=== PATIENT | male | born 1960 | race Caucasian/White ===

== ENCOUNTER 2021-11-18 18:13 | Inpatient (IN) | payer OTHER ==
[~2021-11-18] VITALS: Ht 165.1 cm; Wt 68.9 kg
--- NOTE | 2021-11-18 18:18 | NUR ---
TO ER BED 2. BIB ROOMATE C/O L SIDED WEAKNESS AND L SIDED FACIAL DROOP SINCE THIS AM. PT CONNECTED TO MONITOR. NOT IN RESPIRATORY DISTRESS. PREPARED TO BE TAKEN TO CT
--- NOTE | 2021-11-18 18:20 | NUR ---
CALLED CODE STROKE
--- NOTE | 2021-11-18 18:23 | NUR ---
TELE NEURO REQUEST SENT
[2021-11-18] MEDS ORDERED: IOHEXOL-350 100 ML VIAL IV ONE (18:26)
[2021-11-18] MEDS ORDERED: IV NS 0.9% 250 ML IV ONE (18:27)
--- NOTE | 2021-11-18 18:30 | NUR ---
PT TAKEN FOR CT SCAN
--- NOTE | 2021-11-18 18:32 | NUR ---
AWAITING CALL BACK FROM DR GAONA NEUROLOGIST
--- NOTE | 2021-11-18 18:40 | NUR ---
PATIENT BACK TO ROOM FROM CT SCAN AND XRAY
[2021-11-18] MEDS ORDERED: ARIP15TA3 PO (18:42)
--- NOTE | 2021-11-18 18:56 | NUR ---
LAB AT BEDSIDE
[2021-11-18] MEDS ORDERED: TAMS-12 PO (19:00)
[2021-11-18] MEDS ORDERED: ATOR80TA PO (19:00)
[2021-11-18] MEDS ORDERED: NIFE30TA7 PO (19:00)
[2021-11-18] MEDS ORDERED: SERT50TA12 PO (19:00)
[2021-11-18] MEDS ORDERED: LEVE750T4 PO (19:00)
--- NOTE | 2021-11-18 19:02 | NUR ---
COVID ANTIGEN SWAB DONE AND SENT TO LAB
[2021-11-18] MEDS ORDERED: INSU100I34 SQ (19:03)
[2021-11-18] MEDS ORDERED: CLOP75TA15 PO (19:03)
--- NOTE | 2021-11-18 19:05 | NUR ---
REC'DD REPORT FROM MARIA DOLORES HORTON FOR [facility]
[2021-11-18 19:30] LABS: CALCIUM, SERUM 8.5 mg/dL (8.5-10.1); CARBON DIOXIDE 25 mmol/L (21-32); CHLORIDE 109 mmol/L (98-107); CREATININE 1.8 mg/dL (0.6-1.3); GLUCOSE 110 mg/dL (74-106); POTASSIUM 3.9 mmol/L (3.5-5.1); SODIUM SERUM 142 mmol/L (136-145); UREA NITROGEN, BLOOD 24 mg/dL (7-18)
[2021-11-18 19:53] LABS: BASOPHILS % (AUTO) 0.2 % (0.0-2.0); EOSINOPHILS % (AUTO) 2.2 % (0.0-6.0); HEMATOCRIT 40 % (39-51); LYMPHOCYTES # (AUTO) 1.2 K/uL (0.8-4.8); MEAN CORPUSCULAR HGB CONC 32 g/dl (31.0-36.0); MEAN CORPUSCULAR VOLUME 82 fL (80-96); MONOCYTES # (AUTO) 0.5 K/uL (0.1-1.30); MONOCYTES % (AUTO) 7.5 % (2.0-12.0); NEUTROPHILS # (AUTO) 5.2 K/uL (1.8-8.9); NEUTROPHILS % (AUTO) 73.1 % (43.0-81.0); PLATELET COUNT (AUTO) 333 K/uL (150-450); RED BLOOD CELL COUNT(AUTO) 4.92 MIL/uL (4.5-6.0); WHITE BLOOD COUNT (AUTO) 7.1 K/uL (4.3-11.0)
--- NOTE | 2021-11-18 20:26 | NUR ---
PT WILL BE GOING TO BED 103 PER RN WELDING MACHINE OPERATOR ARC.
--- NOTE | 2021-11-18 20:59 | NUR ---
PER FINE ARTIST, KEH NO BP MEDS
--- NOTE | 2021-11-18 21:06 | NUR ---
ATTEMPTED TO GIVE REPORT, RN TRANSPORTING A PT
[2021-11-18] MEDS ORDERED: LABETALOL HCL IV 100MG VIAL IV PRN (21:30)
--- NOTE | 2021-11-18 21:35 | NUR ---
GAVE REPORT TO MARIA DOLORES Bermudez FOR [facility]
--- NOTE | 2021-11-18 21:40 | NUR ---
RN NOTES ADMITTED A
--- NOTE | 2021-11-18 21:40 | NUR ---
RN NOTES ADMITTED A 60 Y/O MALE PATIENT FROM ER VIA RNEY A/O X 3-4 WITH R SIDED DEFICIT. WITH IV ACCESS AT R AC #18 AND L HAND # 18 PATENT FLUSHES WELL. VITAL SIGNS TAKEN AND RECORDED AFEBRILE. SAFELY TRANSFER PATIENT TO BED. BODY ASSESSMENT DONE. BELONGINGS CHECKED AND RECORDED. ALL SAFETY MEASURES IN PLACE AT ALL TIMES. HOB ELEVATED CALL LIGHT WITHIN REACH. WILL MONITOR THE PATIENT
[2021-11-18] MEDS ORDERED: SIMVASTATIN 20 MG TABLET PO SCH (22:00)
[2021-11-18] MEDS ORDERED: BLOOD SUGAR DIAGNOSTIC 1 EACH STRIP IN SCH (22:00)
[2021-11-18 22:20] VITALS: BP 187/79
[2021-11-18] MEDS: ATORVASTATIN 40 MG TABLET PO SCH (22:23)
[2021-11-18] MEDS: NIFEdipine XL (30MG) 30 MG TAB PO SCH (22:24)
--- NOTE | 2021-11-18 22:30 | NUR ---
RN NOTES BS 138 MG/DL DUE REGULAR INSULIN PER SLIDING SCALE 3 UNITS GIVEN. ALL DUE MEDS GIVEN ORDERED. PATIENT TOLERATED NO COUGHING NOTED.
[2021-11-18] MEDS ORDERED: DEXTROSE 50%-WATER 50 ML DISP.SYRIN IV PRN (23:30)
[2021-11-19] MEDS ORDERED: BLOOD SUGAR DIAGNOSTIC 1 EACH STRIP IN SCH
[2021-11-19] MEDS: *INSULIN REGULAR(HUMULIN R)HUM 100 UNIT/ML VIAL SQ PRN ×2 (00:34→22:13)
[2021-11-19 04:00] VITALS: BP 167/78
--- NOTE | 2021-11-19 05:43 | NUR ---
TEXT DR. CROCKETT FOR MRI APPROVAL.
--- NOTE | 2021-11-19 05:59 | NUR ---
MRI APPROVE, CHARTERED ACCOUNTANT (JOSE) NOTIFIED VIA TEXT.
[2021-11-19 06:18] LABS: BASOPHILS % (AUTO) 0.2 % (0.0-2.0); EOSINOPHILS % (AUTO) 1.5 % (0.0-6.0); HEMATOCRIT 43 % (39-51); HEMOGLOBIN 13.9 g/dL (13.5-17.5); LYMPHOCYTES # (AUTO) 1.2 K/uL (0.8-4.8); LYMPHOCYTES % (AUTO) 16.8 % (20.0-44.0); MEAN CORPUSCULAR HGB CONC 33 g/dl (31.0-36.0); MEAN CORPUSCULAR VOLUME 81 fL (80-96); MONOCYTES # (AUTO) 0.5 K/uL (0.1-1.30); MONOCYTES % (AUTO) 6.8 % (2.0-12.0); NEUTROPHILS # (AUTO) 5.3 K/uL (1.8-8.9); NEUTROPHILS % (AUTO) 74.7 % (43.0-81.0); PLATELET COUNT (AUTO) 319 K/uL (150-450); RED BLOOD CELL COUNT(AUTO) 5.25 MIL/uL (4.5-6.0)
--- NOTE | 2021-11-19 06:43 | NUR ---
RN NOTES PATIENT REMAINS IN STABLE CONDITION NO SIGNIFICANT CHANGES IN HEALTH CONDITION. ALL DUE MEDS GIVEN ORDERED. KEPT CLEAN AND DRY AT ALL TIMES. ON ROOM AIR SATING 98% NO DESATURATION NO PAIN NOTED AT THIS TIME. ALL SAFETY MEASURES IN PLACE. HOB ELEVATED. CALL LIGHT WITHIN REACH. BED ON LOWEST POSITION AND LOCKED. WILL ENDORSED TO MORNING RN FOR [facility]
[2021-11-19 06:45] LABS: CHOLESTEROL 115 mg/dL (<200); HDL CHOLESTEROL 52 mg/dL (40-60); LDL 54 mg/dL (0-99); TRIGLYCERIDES 76 mg/dL (30-150)
--- NOTE | 2021-11-19 07:11 | NUR ---
RN OPENING NOTES RECEIVED PT IN BED SLEEPING, PT ON RA SATING AT 98%. IV ACCESS AT RAC 18G AND L HAND 18G. NO S/S OF DISTRESS OR C/O PAIN AT THIS TIME. ALL SAFETY MEASURES IN PLACE, BED IN LOWEST LOCKED POSITION, SR UP X 3, CALL LIGHT WITHIN REACH. WILL CONTINUE TO MONITOR THROUGHOUT SHIFT.
[2021-11-19] MEDS: BLOOD SUGAR DIAGNOSTIC 1 EACH STRIP VI SCH ×4 (07:37→22:13)
[2021-11-19 08:39] LABS: ALANINE AMINOTRANSFERASE 20 U/L (12-78); ALBUMIN 2.7 g/dL (3.4-5.0); BILIRUBIN,TOTAL 0.2 mg/dL (0.2-1.0); CHLORIDE 107 mmol/L (98-107); CREATININE 1.9 mg/dL (0.6-1.3)
[2021-11-19] MEDS ORDERED: Medication Not On Formulary EA (Atorvastatin Calcium (Lipitor) 80 MG) PO SCH (09:00)
[2021-11-19] MEDS ORDERED: Medication Not On Formulary EA (Levetiracetam (Keppra) 750 MG) PO SCH (09:00)
[2021-11-19] MEDS ORDERED: ASPIRIN 81 MG TAB.CHEW PO SCH (09:00)
[2021-11-19] MEDS: NICOTINE PATCH (14MG) 14 MG PATCH.TD24 TD SCH (09:08)
[2021-11-19] MEDS: NIFEdipine XL (30MG) 30 MG TAB PO SCH (09:08)
[2021-11-19] MEDS: CLOPIDOGREL BISULFATE 75 MG TABLET PO SCH (09:09)
[2021-11-19] MEDS: SERTRALINE HCL 50 MG TABLET PO SCH (09:09)
[2021-11-19] MEDS: LEVETIRACETAM (250 MG) 250 MG TABLET PO SCH ×2 (09:09→17:31)
[2021-11-19] MEDS: TAMSULOSIN 0.4 MG CAP.SR.24H PO SCH (09:09)
--- NOTE | 2021-11-19 12:41 | NUR ---
RN NOTES DOCTOR SYMONE NOTIFIED ABOUT PT BP OF 190/90. WILL CONTINUE TO DO MANUAL BP MEASUREMENTS AND GIVE MEDS ORDERED.
[2021-11-19 12:46] LABS: SODIUM SERUM 143 mmol/L (136-145)
[2021-11-19 12:47] LABS: ALKALINE PHOSPHATASE 124 U/L (46-116); ASPARTATE AMINOTRANSFERASE 16 U/L (15-37); CALCIUM, SERUM 9.1 mg/dL (8.5-10.1); CARBON DIOXIDE 19 mmol/L (21-32); GLUCOSE 137 mg/dL (74-106); POTASSIUM 4.2 mmol/L (3.5-5.1); TOTAL PROTEIN, SERUM 7.3 g/dL (6.4-8.2); UREA NITROGEN, BLOOD 23 mg/dL (7-18)
[2021-11-19] MEDS: hydrALAZINE HCL IV 20 MG VIAL IV PRN ×2 (13:58→16:24)
[2021-11-19 16:00] VITALS: BP 187/91
[2021-11-19] MEDS: INSULIN REGULAR, HUMAN 100 UNIT/ML 3 ML VIAL SQ PRN (18:29)
--- NOTE | 2021-11-19 18:58 | NUR ---
RN CLOSING NOTES PT IS RESTING IN BED, PT COMPLAINS OF SLIGHT NAUSEA. PT ON ROOM AIR SATING AT 98%. PT IS A/O X3-4. IV ACCESS AT R AC 18G AND L HAND 18G. ALL SAFETY MEASURES IMPLEMENTED, BED IN LOWEST POSITION, LOCKED, SIDE RAILS UP X 3, CALL LIGHT WITHIN REACH. ALL NEEDS AND ORDERS ADDRESSED DURING THE SHIFT.
[2021-11-19 20:00] VITALS: BP 124/66
[2021-11-19] MEDS: ATORVASTATIN 40 MG TABLET PO SCH (21:23)
[2021-11-20] VITALS: BP 127/70
[2021-11-20 04:00] VITALS: BP 165/65
--- NOTE | 2021-11-20 05:32 | NUR ---
SAND CARRIER (abran) NOTIFIED VIA TEXT.
[2021-11-20] MEDS: hydrALAZINE HCL IV 20 MG VIAL IV PRN ×2 (06:13→16:18)
--- NOTE | 2021-11-20 06:49 | NUR ---
RN notes Alert with confusion, verbally able to communicate needs. Non ambulatory. In no apparent distress, breathing even and unlabored. No complaint of pain or discomfort. Noted with elevated SBP 165. Hydralazine 10mg administered at around 06:00, no adverse effect noted. Kept clean and dry. Will endorse to next shift for continuity of care.
--- NOTE | 2021-11-20 07:30 | NUR ---
RN NOTES PATIENT RESTING IN BED AT THIS TIME, EYES CLOSED, ABLE TO BE AWAKENED. FILIPINO-SPEAKING. BREATHING EVEN AND UNLABORED, NO DISTRESS. SR ON TELE MONITOR. IV LINE INTACT AND PATENT. SAFETY MEASURES IN PLACE. WILL CONTINUE TO MONITOR.
[2021-11-20] MEDS: INSULIN REGULAR, HUMAN 100 UNIT/ML 3 ML VIAL SQ PRN ×3 (07:35→16:45)
[2021-11-20] MEDS: BLOOD SUGAR DIAGNOSTIC 1 EACH STRIP VI SCH ×4 (07:35→21:43)
[2021-11-20 07:36] LABS: CALCIUM, SERUM 8.5 mg/dL (8.5-10.1); CREATININE 2.3 mg/dL (0.6-1.3); MAGNESIUM 2.1 mg/dL (1.8-2.4); PHOSPHORUS 4.4 mg/dL (2.5-4.9); POTASSIUM 3.8 mmol/L (3.5-5.1)
[2021-11-20 08:00] VITALS: BP 157/72
--- NOTE | 2021-11-20 08:35 | NUR ---
RN NOTES SPOKE W/ ALIA FROM RADIOLOGY; WILL DO MRI LATER TODAY FOR PATIENT PER ALIA.
[2021-11-20] MEDS: CLOPIDOGREL BISULFATE 75 MG TABLET PO SCH (09:17)
[2021-11-20] MEDS: NIFEdipine XL (30MG) 30 MG TAB PO SCH (09:17)
[2021-11-20] MEDS: SERTRALINE HCL 50 MG TABLET PO SCH (09:17)
[2021-11-20] MEDS: LEVETIRACETAM (250 MG) 250 MG TABLET PO SCH ×2 (09:17→16:17)
[2021-11-20] MEDS: NICOTINE PATCH (14MG) 14 MG PATCH.TD24 TD SCH (09:17)
[2021-11-20] MEDS: TAMSULOSIN 0.4 MG CAP.SR.24H PO SCH (09:17)
--- NOTE | 2021-11-20 10:10 | NUR ---
RN NOTES SPEECH THERAPIST AT BEDSIDE FOR [facility] AND [facility].
[2021-11-20 12:00] VITALS: BP 152/69
--- NOTE | 2021-11-20 12:37 | NUR ---
RN NOTES PATIENT PICKED UP FOR MRI PROCEDURE VIA GURNEY, ACCOMPANIED BY 2 RAD TECHS.
--- NOTE | 2021-11-20 13:45 | NUR ---
RN NOTES PATIENT RETURNED FROM MRI PROCEDURE VIA GURNEY, ACCOMPANIED BY RAD TRANSPORTER. PATIENT REATTACHED TO TELE MONITOR.
[2021-11-20] MEDS ORDERED: GADOTERATE MEGLUMINE 5 MMOL/10 ML VIAL IV ONE (14:03)
[2021-11-20 16:00] VITALS: BP 165/83
--- NOTE | 2021-11-20 16:39 | NUR ---
CAR BLOCKER NOTE CALLED TO DR MILLARD NEUROLOGIST ABOUT MRI BRAIN RESULT, NO NEW ORDER GIVEN AT THIS TIME
--- NOTE | 2021-11-20 18:50 | NUR ---
RN NOTES NEURO CHECKS DONE DURING THE SHIFT; NO NEW DEFICIT NOTED. A/O X2-3, ABLE TO MAKE NEEDS KNOWN. ASPIRATION AND SEIZURE PRECS OBSERVED. ABLE TO TAKE MEDS. ASSISTED W/ REPOSITIONING TOLERATED. SAFETY MEASURES MAINTAINED. WILL ENDORSE TO TRAVELING FREIGHT AGENT RN FOR [facility].
--- NOTE | 2021-11-20 19:30 | NUR ---
RN OPENING NOTES RECEIVED PATIENT RESTING IN BED, AWAKE AND A/O X 3 JAPANESE SPEAKING. BREATHING EVEN AND UNLABORED, NO DISTRESS. SR ON TELE MONITOR. IV LINE INTACT AND PATENT RUNNING NS 0.9 70 ML/HR . ALL ISOLATION AND SAFETY PRECAUTIONS TAKEN AT THIS TIME. ON ROOM AIR. WILL CONTINUE TO MONITOR PATIENT AND DO NEURO CHECKS ORDERED.
[2021-11-20 20:00] VITALS: BP 159/71
[2021-11-20] MEDS: ATORVASTATIN 40 MG TABLET PO SCH (21:29)
[2021-11-21] VITALS (7 sets, daily range): BP systolic 127–189; BP diastolic 67–94
--- NOTE | 2021-11-21 04:20 | NUR ---
RN NOTE CONTACTED ALEXIS HURST, FOR PATIENTS HR OF BEING INT E LOW 40'S AND 50'S .SHE GAVE ORDERS TO CONTINUE TO MONITOR HR FOR NOW. ALSO MENTIONED HOW THE BP IS 162/70. SHE SAID TO NOT GIVE THE HYDRALAZINE, THE PARAMETERS TO MAINTAIN THE BP FROM 140-160. WILL HOLD THE HYDRAZINE FOR NOW AND CONTINUE TO MONITOR THE HR ORDERED.
--- NOTE | 2021-11-21 04:40 | NUR ---
RN NOTE ALEXIS HOG WORKER CAME TO UNIT, SPOKE WITH HER REGARDING THE PATIENTS BLOOD PRESSURE. SHE SAID THAT DR. MILLARD STATED IN NOTES TO MAINTAIN PERMISSIVE BP CONTRO ( USUALLY BETWEEN 160-180)L, AND ASKED ME TO ENDORSE TO THE AM NURSE TO CLEAR THE PARAMETERS FOR THE PERMISSIVE BP PARAMETER CONTROL.
--- NOTE | 2021-11-21 06:21 | NUR ---
RN CLOSING NOTES PATIENT HR IS NOW 59, ALL MEDS AND FLUIDS GIVEN ORDERED. PATIENT KEPT DRY AND CLEAN THROUGHOUT THE NIGHT. ALL SAFETY, ENVIRONMENTAL, AND ISOLATION PRECAUTIONS TAKEN. BED IN LOW POSITION, ALL NEURO CHECKS COMPLETED, WILL ENDORSE PLAN OF CARE FOR AM NURSE.
[2021-11-21 07:29] LABS: BASOPHILS % (AUTO) 0.2 % (0.0-2.0); EOSINOPHILS % (AUTO) 2.6 % (0.0-6.0); HEMATOCRIT 37 % (39-51); HEMOGLOBIN 12.4 g/dL (13.5-17.5); LYMPHOCYTES # (AUTO) 1.3 K/uL (0.8-4.8); LYMPHOCYTES % (AUTO) 20.6 % (20.0-44.0); MEAN CORPUSCULAR HGB CONC 33 g/dl (31.0-36.0); MEAN CORPUSCULAR VOLUME 80 fL (80-96); MONOCYTES # (AUTO) 0.5 K/uL (0.1-1.30); MONOCYTES % (AUTO) 7.9 % (2.0-12.0); NEUTROPHILS # (AUTO) 4.2 K/uL (1.8-8.9); NEUTROPHILS % (AUTO) 68.7 % (43.0-81.0); PLATELET COUNT (AUTO) 354 K/uL (150-450); RED BLOOD CELL COUNT(AUTO) 4.64 MIL/uL (4.5-6.0); WHITE BLOOD COUNT (AUTO) 6.1 K/uL (4.3-11.0)
--- NOTE | 2021-11-21 07:37 | NUR ---
RN OPENING NOTE RECEIVED PATIENT RESTING IN BED. PATIENT IS A/O X 3 WALLISIAN SPEAKING. BREATHING EVEN AND UNLABORED, NO DISTRESS. SINUS DIANA ON TELE MONITOR. IV LINE INTACT AND PATENT RUNNING NS 0.9 70 ML/HR . ALL ISOLATION AND SAFETY PRECAUTIONS TAKEN AT THIS TIME. ON ROOM AIR. WILL CONTINUE TO MONITOR PATIENT AND DO NEURO CHECKS ORDERED.
[2021-11-21] MEDS: BLOOD SUGAR DIAGNOSTIC 1 EACH STRIP VI SCH ×4 (08:10→21:40)
[2021-11-21] MEDS: LEVETIRACETAM (250 MG) 250 MG TABLET PO SCH ×2 (08:11→17:13)
[2021-11-21] MEDS: TAMSULOSIN 0.4 MG CAP.SR.24H PO SCH (08:11)
[2021-11-21] MEDS: SERTRALINE HCL 50 MG TABLET PO SCH (08:11)
[2021-11-21] MEDS: CLOPIDOGREL BISULFATE 75 MG TABLET PO SCH (08:13)
[2021-11-21] MEDS: NICOTINE PATCH (14MG) 14 MG PATCH.TD24 TD SCH (08:13)
--- NOTE | 2021-11-21 08:15 | NUR ---
RN NOTE PATIENT BP 178/86 AND HR 48. SPOKE WITH DR ASHBY ABOUT GIVING NIFEDIPINE WITH AM MEDS TO MAINTAIN BP OF 160-180 SYSTOLIC PER MD ORDERS. OK TO GIVE NIFEDIPINE PER DR ASHBY.
[2021-11-21] MEDS: NIFEdipine XL (30MG) 30 MG TAB PO SCH (08:29)
[2021-11-21 08:48] LABS: CALCIUM, SERUM 10.1 mg/dL (8.5-10.1); CREATININE 2.2 mg/dL (0.6-1.3); PHOSPHORUS 3.7 mg/dL (2.5-4.9); POTASSIUM 4.1 mmol/L (3.5-5.1)
[2021-11-21 09:06] LABS: MAGNESIUM 2.2 mg/dL (1.8-2.4)
[2021-11-21] MEDS: IV NS 0.9% 1,000 ML IV PRN ×2 (09:48→23:16)
[2021-11-21] MEDS: hydrALAZINE HCL IV 20 MG VIAL IV PRN ×2 (11:40→23:33)
[2021-11-21] MEDS ORDERED: HEPARIN SODIUM, PORCINE 5000 UNITS/1 ML VIAL SQ SCH (15:00)
[2021-11-21] MEDS: APIXABAN 2.5 MG TABLET PO SCH (17:16)
--- NOTE | 2021-11-21 18:32 | NUR ---
RN CLOSING NOTE PATIENT IN BED RESTING WITH NO SIGN OF DISTRESS. PATIENT IS A/O X 3. NEURO CHECKS ADMINISTERED ORDERED. SOMALI SPEAKING. BREATHING EVEN AND UNLABORED, NO DISTRESS. O2SAT OF 98% ON ROOM AIR. SINUS DIANA ON TELE MONITOR. L HAND PIV LINE INTACT AND PATENT RUNNING NS 0.9 70 ML/HR. ALL ISOLATION AND SAFETY PRECAUTIONS TAKEN AT THIS TIME. CALL LIGHT WITHIN REACH. BED IN LOWEST POSITION AND LOCKED IN PLACE. WILL ENDORSE TO FOOD SERVICE DRIVER RN.
--- NOTE | 2021-11-21 19:20 | NUR ---
RN opening notes Received Pt from morning nurse. Pt is laying in bed comfortably watching TV. Pt is alert and orientedX2-3. On room air. no SOB. No S/S of distress noted. Tele monitor showed SR hr at 60. IV site at L hand# 20 is clean, intact and infuising well NS @ 70 ml/hr. Safety precautions is maintained. Contact precautions is maintained. Will continue to monitor.
[2021-11-21] MEDS: ATORVASTATIN 40 MG TABLET PO SCH (21:16)
[2021-11-21] MEDS: *INSULIN REGULAR(HUMULIN R)HUM 100 UNIT/ML VIAL SQ PRN (21:40)
--- NOTE | 2021-11-21 21:40 | NUR ---
RN notes Pt's blood sugar HS is 101. Held insulin per level ordered. No S/S of hypoglycemia noted.
--- NOTE | 2021-11-21 23:34 | NUR ---
RN notes Pt's BP 164/84 and HR 54. administered hydralazine 0.5 ml/iv push/prn for high BP as ordered. Will continue to monitor.
[2021-11-22 04:00] VITALS: BP 167/87
[2021-11-22] MEDS: hydrALAZINE HCL IV 20 MG VIAL IV PRN ×3 (04:32→17:28)
--- NOTE | 2021-11-22 06:28 | NUR ---
RN closing notes Pt is resting in bed comfortably. Pt is alert and orientedX2-3. On room air. no SOB. No S/S of distress noted. Tele monitor showed SR hr at 64. IV site at L hand# 20 is clean, intact and infuising well NS @ 70 ml/hr. Routine meds were given as ordered. Kept Pt clean, dry and comfortable. Safety precautions is maintained. Contact precautions is maintained. Will endorse to am nurse for [facility].
[2021-11-22 06:38] LABS: BASOPHILS % (AUTO) 0.2 % (0.0-2.0); EOSINOPHILS % (AUTO) 0.7 % (0.0-6.0); HEMATOCRIT 43 % (39-51); LYMPHOCYTES # (AUTO) 0.8 K/uL (0.8-4.8); LYMPHOCYTES % (AUTO) 10.3 % (20.0-44.0); MEAN CORPUSCULAR HGB CONC 33 g/dl (31.0-36.0); MEAN CORPUSCULAR VOLUME 80 fL (80-96); MONOCYTES # (AUTO) 0.3 K/uL (0.1-1.30); MONOCYTES % (AUTO) 4.1 % (2.0-12.0); NEUTROPHILS # (AUTO) 6.3 K/uL (1.8-8.9); NEUTROPHILS % (AUTO) 84.7 % (43.0-81.0); PLATELET COUNT (AUTO) 396 K/uL (150-450); RED BLOOD CELL COUNT(AUTO) 5.31 MIL/uL (4.5-6.0); WHITE BLOOD COUNT (AUTO) 7.5 K/uL (4.3-11.0)
[2021-11-22 08:00] VITALS: BP 189/75
[2021-11-22] MEDS: NICOTINE PATCH (14MG) 14 MG PATCH.TD24 TD SCH (08:23)
[2021-11-22] MEDS: BLOOD SUGAR DIAGNOSTIC 1 EACH STRIP VI SCH ×4 (08:23→22:43)
[2021-11-22] MEDS: LEVETIRACETAM (250 MG) 250 MG TABLET PO SCH ×2 (08:24→17:25)
[2021-11-22] MEDS: SERTRALINE HCL 50 MG TABLET PO SCH (08:24)
[2021-11-22] MEDS: NIFEdipine XL (30MG) 30 MG TAB PO SCH (08:24)
[2021-11-22] MEDS: TAMSULOSIN 0.4 MG CAP.SR.24H PO SCH (08:24)
[2021-11-22] MEDS: APIXABAN 2.5 MG TABLET PO SCH ×2 (08:25→17:26)
[2021-11-22] MEDS ORDERED: AMLODIPINE BESYLATE 5 MG TABLET PO SCH (09:00)
[2021-11-22] MEDS: AMLODIPINE BESYLATE 5 MG TABLET PO SCH (09:00)
[2021-11-22] MEDS: PRAZOSIN HCL 1 MG CAPSULE PO SCH ×3 (09:28→17:25)
[2021-11-22 11:23] LABS: CALCIUM, SERUM 8.7 mg/dL (8.5-10.1); CREATININE 1.9 mg/dL (0.6-1.3); PHOSPHORUS 2.9 mg/dL (2.5-4.9); POTASSIUM 3.8 mmol/L (3.5-5.1)
[2021-11-22 12:00] VITALS: BP 189/86
[2021-11-22] MEDS: INSULIN REGULAR, HUMAN 100 UNIT/ML 3 ML VIAL SQ PRN (12:30)
[2021-11-22 16:00] VITALS: BP 170/63
--- NOTE | 2021-11-22 19:20 | NUR ---
RN OPENING NOTES RECEIVED PATIENT ON BED , ALERT ORIENTED X 2-3, RESPIRATORY EVEN AND UNLABORED NO SOB NOTED. REMAIN AFEBRILE, ON ROOM AIR SATING AT 98%. NOTED WITH LEFT HAND #20 IV LINE INTACT, PATENT, FLUSHED WITH NS, NO INFILTRATION NOTED AT SITE. IVF RUNNING WITH NS 1L @ 70ML/HR. ALL SAFETY MEASURE PROVIDED. BED IN LOWEST POSITION, LOCKED. CONTINUE TO MONITOR.
[2021-11-22 20:00] VITALS: BP 139/60
[2021-11-22] MEDS: ATORVASTATIN 40 MG TABLET PO SCH (22:43)
[2021-11-22] MEDS: *INSULIN REGULAR(HUMULIN R)HUM 100 UNIT/ML VIAL SQ PRN (22:44)
[2021-11-23 04:00] VITALS: BP 158/70
--- NOTE | 2021-11-23 07:20 | NUR ---
RN CLOSING NOTES NO SIGNIFICANT CHANGES THROUGH OUT THE SHIFT, RESPIRATORY EVEN AND UNLABORED NO SOB NOTED. REMAIN AFEBRILE, ON ROOM AIR SATING AT 98%. STILL RUNNING WITH NS 1L @ 70ML/HR. ALL DUE MEDS GIVEN ORDERED. ALL SAFETY MEASURE PROVIDED. BED IN LOWEST POSITION, LOCKED. CONTINUE TO MONITOR.
--- NOTE | 2021-11-23 07:43 | NUR ---
RN OPENING NOTE Patient in bed, asleep. A/O x 2-3. On room air, breathing evenly and unlabored. No SOB or s/s of distress noted. Iv access on Left hand #20G infusing NS at 70 ml/hr. Safety measures in place: bed in low, locked position; siderails up x 2; call light within reach. Will continue to monitor.
--- NOTE | 2021-11-23 07:45 | NUR ---
RN NOTE Patient's BS is 117, no Insulin coverage needed per sliding scale.
[2021-11-23] MEDS: IV NS 0.9% 1,000 ML IV PRN (07:52)
[2021-11-23 08:00] VITALS: BP 179/90
[2021-11-23] MEDS: BLOOD SUGAR DIAGNOSTIC 1 EACH STRIP VI SCH ×4 (08:11→21:16)
[2021-11-23] MEDS: LEVETIRACETAM (250 MG) 250 MG TABLET PO SCH ×2 (08:39→16:59)
[2021-11-23] MEDS: SERTRALINE HCL 50 MG TABLET PO SCH (08:39)
[2021-11-23] MEDS: NICOTINE PATCH (14MG) 14 MG PATCH.TD24 TD SCH (08:39)
[2021-11-23] MEDS: TAMSULOSIN 0.4 MG CAP.SR.24H PO SCH (08:45)
[2021-11-23] MEDS: APIXABAN 2.5 MG TABLET PO SCH ×2 (08:47→17:01)
[2021-11-23] MEDS: PRAZOSIN HCL 1 MG CAPSULE PO SCH ×3 (08:50→16:59)
[2021-11-23] MEDS: AMLODIPINE BESYLATE 5 MG TABLET PO SCH (08:50)
[2021-11-23] MEDS ORDERED: APIX2.5T PO (09:10)
[2021-11-23] MEDS ORDERED: PRAZ1CAP17 PO (09:10)
[2021-11-23] MEDS ORDERED: NICO-676 TD (09:10)
--- NOTE | 2021-11-23 11:00 | NUR ---
RN NOTE Patient's Iv access dislodged. New IV access inserted at the same site, Left hand #22G.
[2021-11-23] MEDS: hydrALAZINE HCL IV 20 MG VIAL IV PRN ×2 (11:11→15:50)
--- NOTE | 2021-11-23 11:11 | NUR ---
RN NOTE Patient's BP is 179/90, Hydralazine PRN given. Will continue to monitor patient.
[2021-11-23] MEDS: INSULIN REGULAR, HUMAN 100 UNIT/ML 3 ML VIAL SQ PRN ×2 (11:41→17:59)
[2021-11-23 12:00] VITALS: BP 177/82
--- NOTE | 2021-11-23 14:03 | NUR ---
RN NOTE Gave report to Redd of [facility].
[2021-11-23 16:00] VITALS: BP 163/72
--- NOTE | 2021-11-23 18:48 | NUR ---
RN CLOSING NOTE Patient in bed, resting comfortably. A/O x 2-3, able to make needs known. Stable on room air, breathing evenly and unlabored. No SOB or s/s of distress noted. IV access on Left hand #22G infusing NS at 70 ml/hr. All needs attended to. Due meds given. Patient kept clean and dry. Safety measures maintained: bed in low, locked position; siderails up x 2; call light within reach. Will endorse to fast food shift supervisor nurse for [facility].
--- NOTE | 2021-11-23 19:05 | NUR ---
RECEIVED PATIENT ON BED , SLEEPING EASY TO AWAKE BUT STILL DROWSY RESPIRATORY EVEN AND UNLABORED NO SOB NOTED. REMAIN AFEBRILE, ON ROOM AIR SATING AT 98%. NOTED WITH LEFT HAND #22 IV LINE INTACT, PATENT, FLUSHED WITH NS, NO INFILTRATION NOTED AT SITE. IVF RUNNING WITH NS 1L @ 70ML/HR. ALL SAFETY MEASURE PROVIDED. BED IN LOWEST POSITION, LOCKED. CONTINUE TO MONITOR.
[2021-11-23 20:00] VITALS: BP 106/67
[2021-11-23] MEDS: ATORVASTATIN 40 MG TABLET PO SCH (21:07)
[2021-11-23] MEDS: *INSULIN REGULAR(HUMULIN R)HUM 100 UNIT/ML VIAL SQ PRN (21:18)
[2021-11-24] MEDS: IV NS 0.9% 1,000 ML IV PRN (01:01)
[2021-11-24 04:00] VITALS: BP 141/63
--- NOTE | 2021-11-24 07:09 | NUR ---
PT ON BED ASLEEP EASY TO WAKE UP NO SIGN OF RESPIRATORY DISTRESS ON ROOM AIR NO SIGNIFICANT CHANGES ON CONDITION NOTED ALL NEEDS ATTENDED BED ON LOWEST POSITION AND LOCKED SIDE RAILS UP X2 CALL LIGHT WITHIN REACH WILL CONT TO MONITOR
--- NOTE | 2021-11-24 07:40 | NUR ---
RN OPENING NOTE RECEIVED PATIENT IN BED, A/OX 2 OFTEN DROWSY. RESPIRATORY EXPANSION EVEN AND UNLABORED NO SOB NOTED. REMAINS AFEBRILE AT THIS TIME, ON ROOM AIR SATING AT 98%. NOTED WITH LEFT HAND #22 IV LINE INTACT AND PATENT, FLUSHED WITH NS, NO INFILTRATION OR SWELLING NOTED AT THE SITE. IVF RUNNING WITH NS 1L @ 70ML/HR. ALL SAFETY MEASURES IMPLEMENTED. BED IN LOWEST POSITION, LOCKED. WILL CONTINUE TO MONITOR.
[2021-11-24] MEDS: AMLODIPINE BESYLATE 5 MG TABLET PO SCH (08:14)
[2021-11-24] MEDS: BLOOD SUGAR DIAGNOSTIC 1 EACH STRIP VI SCH ×2 (08:14→11:55)
[2021-11-24] MEDS: TAMSULOSIN 0.4 MG CAP.SR.24H PO SCH (08:14)
[2021-11-24] MEDS: NICOTINE PATCH (14MG) 14 MG PATCH.TD24 TD SCH (08:14)
[2021-11-24] MEDS: LEVETIRACETAM (250 MG) 250 MG TABLET PO SCH (08:15)
[2021-11-24] MEDS: PRAZOSIN HCL 1 MG CAPSULE PO SCH ×2 (08:15→13:06)
[2021-11-24] MEDS: SERTRALINE HCL 50 MG TABLET PO SCH (08:15)
[2021-11-24] MEDS: APIXABAN 2.5 MG TABLET PO SCH (08:17)
[2021-11-24 12:00] VITALS: BP 157/77
[2021-11-24 13:06] VITALS: BP 157/77
--- NOTE | 2021-11-24 15:17 | NUR ---
RN NOTES PATIENT FAMILY NOTIFIED OF TRANSFER TO [facility] [phone]. SPOKE TO MARIA DOLORES ROSE TO GIVE REPORT ABOUT THE PATIENT. EKTA EMT FROM [facility] RECEIVED PATIENT FOR TRANSPORT TO [facility] FOR CONTINUITY OF CARE.
[2021-11-24] MEDS ORDERED: GLUCERNA SHAKE 237 ML CAN PO SCH (17:00)
== END 2021-11-24 15:25 | DRG 45 ==
LOC: ER 18:15 → TELE1 20:45 → MEDSG1 11-22 16:12
PROVIDERS: ADMIT Nurse Practitioner Acute Care; ATTEND Internal Medicine
DX: I63.9 Cerebral infarction, unspecified (principal); N17.0 Acute kidney failure with tubular necrosis; U07.1 COVID-19; E44.0 Moderate protein-calorie malnutrition; I16.0 Hypertensive urgency; G40.909 Epilepsy, unspecified, not intractable, without status epilepticus; I12.9 Hypertensive chronic kidney disease with stage 1 through stage 4 chronic kidney disease, or unspecified chronic kidney disease; R29.714 NIHSS score 14; E11.22 Type 2 diabetes mellitus with diabetic chronic kidney disease; N40.0 Benign prostatic hyperplasia without lower urinary tract symptoms; N18.9 Chronic kidney disease, unspecified; G93.89 Other specified disorders of brain; I69.351 Hemiplegia and hemiparesis following cerebral infarction affecting right dominant side; F20.9 Schizophrenia, unspecified; E78.00 Pure hypercholesterolemia, unspecified; Z79.4 Long term (current) use of insulin; Z79.02 Long term (current) use of antithrombotics/antiplatelets; Z79.899 Other long term (current) drug therapy; E78.5 Hyperlipidemia, unspecified; F17.210 Nicotine dependence, cigarettes, uncomplicated; E88.09 Other disorders of plasma-protein metabolism, not elsewhere classified; D18.02 Hemangioma of intracranial structures
CPT/HCPCS: 36415; 70450-TC; 70496-TC; 70498-TC; 70553-TC; 71045-TC; 80048-TC; 80053-TC; 80061-TC; 82962-TC; 83735-TC; 83880; 84100-TC; 84484-TC; 85025-TC; 85378-TC; 85730-TC; 86140-TC; 87081-TC; 92526; 92611-TC; 97110-TC; 97112-TC; 97530-TC; A9575; C9803; G0378; J0360; J1815; J7030; J7050; Q9967